=== PATIENT | male | born 1935 | race Caucasian/White ===

== ENCOUNTER → 2019-08-08 | Outpatient (CLI) | payer MEDICARE, OTHER | END | disposition home or self-care (01) | LOC: M.RAD 09:54 | DX: M25.551 Pain in right hip (principal); I10 Essential (primary) hypertension; K21.9 Gastro-esophageal reflux disease without esophagitis; M19.90 Unspecified osteoarthritis, unspecified site ==

== ENCOUNTER → 2020-11-10 | Outpatient (CLI) | payer MEDICARE, OTHER ==
[~2020-11-10] MED LIST: ALLERGY RELIEF4 MG PO; AUGMENTIN 875-1 EACH PO; CENTRUM SILVER1 EAC7 PO; CENTRUM SILVER1 EACH PO; CRANBERRY500 M3 PO; ELIQUIS5 MG PO; FISH OIL 1,0001 EAC9 PO; FLOMAX0.4 MG PO; LISINOPRIL20 MG PO; MAGNESIUM250 M1 PO; MELOXICAM7.5 MG PO; MSM500 MG PO; NIGHT TIME COL1 EAC1 PO; OCUVITE ADULT1 EAC1 PO; OMEPRAZOLE 20 M20 M1 PO; OXYCODONE HCL 55 MG PO; SAW PALMETTO 41 EACH PO; TRAMADOL 50 MG50 MG PO; VITAMIN D312.5 MCG/5 PO
[2020-11-10 10:53] LABS: APTT 27.1 Seconds (25.0-31.3); INR 1.1; PROTIME 11.7 Seconds (9.20-11.50)
== END ==
LOC: M.LAB 10:22
PROVIDERS: ATTEND Orthopaedic Surgery
DX: Z01.812 Encounter for preprocedural laboratory examination (principal); I10 Essential (primary) hypertension; E78.00 Pure hypercholesterolemia, unspecified; Z68.30 Body mass index [BMI] 30.0-30.9, adult

== ENCOUNTER 2020-11-16 12:08 | Inpatient (IN) | payer MEDICARE, OTHER ==
[~2020-11-16] VITALS: Ht 170.2 cm; Wt 89.8 kg
[~2020-11-16 12:08] MED LIST changes: -AUGMENTIN 875-1 EACH PO; -CENTRUM SILVER1 EAC7 PO; -ELIQUIS5 MG PO; -FISH OIL 1,0001 EAC9 PO; -MELOXICAM7.5 MG PO; -OCUVITE ADULT1 EAC1 PO; -OXYCODONE HCL 55 MG PO; -TRAMADOL 50 MG50 MG PO
[2020-11-16 13:20] VITALS: BP 131/85
[2020-11-16] MEDS ORDERED: CENTRUM SILVER1 EAC7 PO (13:49)
[2020-11-16] MEDS ORDERED: OCUVITE ADULT1 EAC1 PO (13:50)
[2020-11-16] MEDS ORDERED: MELOXICAM7.5 MG PO (13:51)
[2020-11-16] MEDS ORDERED: FISH OIL 1,0001 EAC9 PO (13:52)
[2020-11-16 17:32] LABS: HEMATOCRIT 36.1 % (42.0-52.0); HEMOGLOBIN 11.9 gm/dL (14.0-18.0); MCV 93.9 fL (80.0-100.0); MPV 8.1 fl. (7.2-11.1); RBC 3.85 mil/uL (4.50-6.00); RDW-CV 14.3 % (10.5-14.5)
[2020-11-16 17:41] LABS: CALCIUM 8.1 mg/dL (8.5-10.1); CREATININE 1.4 mg/dL (0.6-1.3); POTASSIUM 3.5 mmol/L (3.5-5.1)
[2020-11-16 17:46] LABS: ALBUMIN 2.6 g/dL (3.4-5.0); TOTAL BILIRUBIN 0.3 mg/dL (<0.1-1.0); TOTAL PROTEIN 5.8 g/dL (6.4-8.2)
[2020-11-16 17:50] LABS: INR 1.1; PROTIME 12.1 Seconds (9.20-11.50)
--- NOTE | 2020-11-16 20:43 | NUR ---
PATIENT ARRIVED IN ICU BED 4 AT AP[PROX 1805 WITH OR STAFF AT BEDSIDE. PATIENT WAS IN PACU POST RIGHT TOTAL HIP SX WHEN HE WENT PEA. WHEN PATIENT ARRIVED TO THE ICU HE WAS WAKING UP AND FOLLOWING SOME COMMANDS. DR BROWN AT BEDSIDE. ORDERS RECIEVED FOR STAT CTA. PATIENT WAS TAKEN TO CAT SCAN. PATIENT TOLERATED WELL. PATIENT ALSO IN ACCELERATED JUNCTIONAL RHYTHM AND CARDIO IS AWARE.
[2020-11-16 21:03] LABS: BE -6.4 mmol/L (-2 to +3); PCO2 30.5 mmHg (35.0-45.0); pH 7.379 (7.340-7.450)
[2020-11-16 21:08] LABS: PO2 229.3 mmHg (75.0-100.0)
[2020-11-16 23:00] VITALS: BP 103/57
[2020-11-17] VITALS (25 sets, daily range): BP systolic 92–122; BP diastolic 52–73
[2020-11-17 04:43] LABS: HEMOGLOBIN 10.3 gm/dL (14.0-18.0); MCH 31.2 pg (26.0-34.0); MCHC 34.3 g/dL (28.0-37.0); MCV 91.1 fL (80.0-100.0); MPV 7.6 fl. (7.2-11.1); NUCLEATED RBCS 0 /100WBC; RDW-CV 14.3 % (10.5-14.5); WBC 13.3 thou/uL (4.0-11.0)
[2020-11-17 04:46] LABS: PLATELET COUNT* 166 thou/uL (150-400)
[2020-11-17 05:05] LABS: ALBUMIN 2.5 g/dL (3.4-5.0); CALCIUM 8.3 mg/dL (8.5-10.1); CREATININE 1.6 mg/dL (0.6-1.3); TOTAL BILIRUBIN 0.3 mg/dL (<0.1-1.0); TOTAL PROTEIN 5.9 g/dL (6.4-8.2)
[2020-11-17 05:06] LABS: PREALBUMIN 20.4 mg/dL (18.0-35.7)
[2020-11-17 05:35] LABS: POTASSIUM 4.5 mmol/L (3.5-5.1)
[2020-11-17 05:41] LABS: ABSOLUTE LYMPHOCYTES 1.6 thou/uL (0.8-5.3); ABSOLUTE MONOCYTES 0.3 thou/uL (0.0-1.2); ABSOLUTE NEUTROPHILS 11.4 thou/uL (1.6-8.1); ANISOCYTOSIS 1+; PLATELET ESTIMATE ADEQUATE; POIKILOCYTOSIS 1+
--- NOTE | 2020-11-17 11:04 | EKG ---
[place] [address] ELECTROCARDIOGRAM REPORT Name: ERIC CABAN JR Room: [address] ADM IN M.R.#: [id number] Admission: 11/17/20 Attend Phys: Charlie Tian Discharge: Date of : 31 Date of Service: 11/16/20 1721 Report #: [id number] THIS REPORT FOR: //name// [facility] Test Date: 2020-11-16 Test Time: 17:21:20 Pat Name: ERIC CABAN Department: Room: [facility] Gender: M Cad Draftsman: ALC : 1935 Requested By: Eric Hines Order Number: [id number] Chalino MD: Domenic Bowser Measurements Intervals [place] Rate: 80 P: OK: QRS: -4 QRSD: 113 T: 1 QT: 416 QTc: 480 Interpretive Statements Accelerated junctional rhythm Inferior infarct, 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
--- NOTE | 2020-11-17 11:13 | EKG ---
[place] [address] ELECTROCARDIOGRAM REPORT Name: ARSHERIC Guzmán JR Room: [address] IN .R.#: [id number] Admission: 11/17/20 Attend Phys: Charlie Tian Discharge: Date of : 31 Date of Service: 11/17/20 0836 Report #: [id number] THIS REPORT FOR: //name// [facility] Test Date: 2020-11-17 Test Time: 08:36:19 Pat Name: ERIC CABAN Department: Room: [facility] Gender: M Licensed Practical Nurse Clinic Nurse: : 1935 Requested By: Bhavesh Lara Order Number: [id number] Chalino MD: Domenic Bowser Measurements Intervals [place] Rate: 66 P: 241 TX: 439 QRS: 3 QRSD: 108 T: 35 QT: 412 QTc: 432 Interpretive Statements Sinus rhythm Prolonged TX interval Abnormal R-wave progression, early transition No previous ECG available for comparison Electronically Signed On 11-17-2020 11:13:35 CDT by Domenic Bowser [email or web address] <ELECTRONICALLY SIGNED> By: Domenic Bowser MD, [facility] 11/17/20 1113 0836 0836 Domenic Bowser MD, [facility] /EPI
--- NOTE | 2020-11-17 12:54 | 2DMMODE ---
[place] [address] 2 D/M-MODE ECHOCARDIOGRAM Name: ERIC CABAN JR Room: [address] IN [facility]#: [id number] Admission: 11/17/20 Attend Phys: Charlie Tian Discharge: Date of : 31 Date of Service: 11/17/20 1254 Report #: [id number] THIS REPORT FOR: cc: James Aguilar,James Kenyon,Domenic Jacobs MD [facility] ~ APPROVED REPORT Study performed: 11/17/2020 09:27:59 EXAM: Comprehensive 2D, Doppler, and color-flow Echocardiogram Patient Location: In-Patient Room #: 004 Status: routine BSA: 1.98 HR: 71 bpm BP: 120/66 mmHg Rhythm: NSR Other Information Study Quality: Good Indications Arrhythmia 2D Dimensions IVSd: 12.09 (7-11mm) LVOT Diam: 20.88 (18-24mm) LVDd: 47.85 mm PWd: 10.91 (7-11mm) Ascending Ao: 35.78 (22-36mm) LVDs: 34.79 (25-40mm) Aortic Root: 32.98 mm Volumes Left Atrial Volume (Systole) LA ESV Index: 27.50 mL/m2 Aortic Valve AoV Peak Rio.: 1.32 m/s AO Peak Gr.: 6.97 mmHg LVOT Max P.67 mmHg AO Mean Gr.: 3.70 mmHg LVOT Mean P.00 mmHg LVOT Max V: 1.08 m/s AO V2 VTI: 21.85 cm LVOT Mean V: 0.64 m/s SCOTT (VTI): 3.18 cm2 LVOT V1 VTI: 20.28 cm AI Gosper: 2.12 m/s2 [place] [address] 2 D/M-MODE ECHOCARDIOGRAM Name: ERIC CABAN JR Room: [address] IN [facility]#: [id number] Admission: 11/17/20 Attend Phys: Charlie Tian Discharge: Date of : 31 Date of Service: 11/17/20 1254 Report #: [id number] AI PHT: 599.60 ms Pulmonary Valve PV Peak Rio.: 0.94 m/s PV Peak Gr.: 3.50 mmHg Tricuspid Valve RAP Estimate: 5.00 mmHg TR Peak Gr.: 15.78 mmHg RVSP: 20.00 mmHg PA Pressure: 20.00 mmHg Left Ventricle The left ventricle is normal size. There is normal LV segmental wall motion. There is normal left ventricular wall thickness. Left ventricular systolic function is normal. The left ventricular ejection fraction is within the normal range. LVEF is 55-60%. Grade I - abnormal relaxation pattern. Right Ventricle The right ventricle is normal size. The right ventricular systolic function is normal. Atria The left atrium size is normal. The right atrium size is normal. Aortic Valve Mild aortic valve sclerosis. Mild aortic regurgitation. There is no aortic valvular stenosis. Mitral Valve The mitral valve is normal in structure. Trace mitral regurgitation. No evidence of mitral valve stenosis. Tricuspid Valve The tricuspid valve is normal in structure. Trace tricuspid regurgitation. No pulmonary hypertension. Pulmonic Valve The pulmonary valve is normal in structure. Trace pulmonic regurgitation. Great Vessels The aortic root is normal in size. IVC is not [place] [address] 2 D/M-MODE ECHOCARDIOGRAM Name: ERIC CABAN JR Room: [address] IN [facility].#: [id number] Admission: 11/17/20 Attend Phys: Charlie Tian Discharge: Date of : 31 Date of Service: 11/17/20 1254 Report #: [id number] There is no pericardial effusion. <Conclusion> The left ventricle is normal size. There is normal left ventricular wall thickness. Left ventricular systolic function is normal. The left ventricular ejection fraction is within the normal range. LVEF is 55-60%. Grade I - abnormal relaxation pattern. The right ventricle is normal size. The left atrium size is normal. Mild aortic valve sclerosis. Mild aortic regurgitation. There is no aortic valvular stenosis. The mitral valve is normal in structure. Trace mitral regurgitation. The tricuspid valve is normal in structure. There is no pericardial effusion. There is normal LV segmental wall motion. <ELECTRONICALLY SIGNED> By: Domenic Bowser MD, [facility] 11/17/20 1254 1254 1254 Domenic Bowser MD, FACC /INF
--- NOTE | 2020-11-17 13:24 | NUR ---
daniela spk with pt and his and son at bedside. pt lives home with and is usually active and independent until his hip started given him trouble. pt uses a cane more frequently. pt has no hx with hh orsnf. pt was admitted icu after he went into PEA after hip sx. pt was extubated today. pt/ot eval needs. pt's prefers hh vs snf at d/c.
--- NOTE | 2020-11-17 15:11 | NUR ---
THIS COMPLEX MANAGER REVIEWED AND AGREES WITH THE EVALUATION AND RECOMMENDATIONS BY PATRICK MOORE FOR THIS DAY. CONCHIS SEGURAT
[2020-11-18] VITALS (7 sets, daily range): BP systolic 122–149; BP diastolic 63–85
[2020-11-18 05:05] LABS: ABSOLUTE EOSINOPHILS 0.1 thou/uL (0.0-0.7); ABSOLUTE LYMPHOCYTES 1.2 thou/uL (0.8-5.3); ABSOLUTE MONOCYTES 1.2 thou/uL (0.0-1.2); ABSOLUTE NEUTROPHILS 9.3 thou/uL (1.6-8.1); BASOPHILS 0.4 %; EOSINOPHILS 0.7 %; HEMATOCRIT 27.2 % (42.0-52.0); HEMOGLOBIN 9.5 gm/dL (14.0-18.0); LYMPHOCYTES 10.3 %; MCH 31.7 pg (26.0-34.0); MCHC 34.8 g/dL (28.0-37.0); MCV 91.3 fL (80.0-100.0); MONOCYTES 9.9 %; MPV 7.4 fl. (7.2-11.1); NUCLEATED RBCS 0 /100WBC; PLATELET COUNT* 156 thou/uL (150-400); POLYS 78.7 %; RBC 2.98 mil/uL (4.50-6.00); RDW-CV 14.3 % (10.5-14.5); WBC 11.8 thou/uL (4.0-11.0)
[2020-11-18 05:18] LABS: ALBUMIN 2.4 g/dL (3.4-5.0); CALCIUM 7.9 mg/dL (8.5-10.1); CREATININE 1.6 mg/dL (0.6-1.3); POTASSIUM 4.2 mmol/L (3.5-5.1); TOTAL BILIRUBIN 0.5 mg/dL (<0.1-1.0); TOTAL PROTEIN 5.8 g/dL (6.4-8.2)
--- NOTE | 2020-11-18 06:38 | NUR ---
RECEIVED REPORT AND ASSUMED CARE AT 1900. VSS. CARDIAC MONITORING IN PLACE. PT REPORTED PAIN TO R HIP. PRN MEDICATION PER ORDERS. PT ALSO REPORTED A "BURNING" FEELING IN LEGS BELOW HIS KNEES. THIS WAS PRESENT BEFORE ADMISSION. COMPRESSION STOCKINGS REMOVED AND SKIN ASSESSED. SKIN WDL. COMPRESSION STOCKINGS REAPPLIED. ICE APPLIED TO LOWER EXTREMITIES BILATERALLY PROVIDING RELIEF. NO ACUTE CHANGES ON THIS SHIFT, POSITION CHANGED Q2H, ROUNDING COMPLETED AND ALL NEEDS MET.
--- NOTE | 2020-11-18 15:34 | NUR ---
PT AGREEABLE TO HOME HEALTH. PT LIVES NEAR [place]. [facility] [place] SO SENT A REFERRAL TO [facility]. [phone].
--- NOTE | 2020-11-18 16:55 | NUR ---
Pt transferring to [facility]. Report called to LOLY Pfeiffer. VSS. monitor tech loretta'luke.
--- NOTE | 2020-11-18 18:43 | CON ---
[address] [address] CONSULTATION Name: ARSH,ERIC Tyesha BROWN Room: [address] IN [facility]#: [id number] Admission: 11/17/20 Attend Phys: Manolo Fields Discharge: Date of : 31 Report #: [id number] THIS REPORT FOR: cc: James Aguilar Christopher DO Pervez, Adeel MD ~ DOC #: [id number] Nahid Cotton MD DATE OF CONSULTATION: 11/17/2020 REQUESTING PHYSICIAN: Dr. Ventura De La Fuente. INDICATION FOR CONSULTATION: Acute respiratory failure following a cardiac arrest. HISTORY OF PRESENT ILLNESS: An 85-year-old gentleman, past medical history includes a remote history of smoking, he discontinued more than 22 years ago; however, he does not have a previous history of cardiac or respiratory disease. The patient now was admitted for an elective right hip arthroplasty, which he underwent yesterday. Subsequent to this procedure, he went into a PEA arrest. He had an accelerated junctional rhythm subsequently on his EKG. He therefore was endotracheally intubated. There are findings on the CT chest, which are suspicious of aspiration; however, I do not have any history of aspiration available. The patient was on the ventilator overnight, this morning was extubated and in fact is doing well off the ventilator now. He in fact is even off oxygen. He does not have any respiratory complaints. He is alert, awake and oriented. When I saw him earlier today, he was sitting comfortably in a chair. The patient has had some pain at the surgical site, otherwise has no complaints. He answers negative for 12 questions for review of systems. PAST MEDICAL HISTORY: Gastroesophageal reflux disease, hypertension and benign prostatic hypertrophy. He underwent circumcision in 08/2020, which is 2 months ago. SOCIAL HISTORY: He used to smoke when he was younger and has smoked for several decades. He also discontinued more than 20 years ago. No known history of heavy alcohol use or illegal drug use. CURRENT MEDICATIONS: List in [facility], reviewed. HOME MEDICATIONS: List also in [place], reviewed. ALLERGIES: No known drug allergies. FAMILY HISTORY: [place] [address] CONSULTATION Name: ERIC CABAN JR Room: [address]#: [id number] Admission: 11/17/20 Attend Phys: Manolo Fields Discharge: Date of : 31 Report #: [id number] PHYSICAL EXAMINATION: GENERAL: He is alert, awake and oriented, does not appear to be in any distress at this time. VITAL SIGNS: The pulse of 88 and a blood pressure of 109/60. He was saturating 96%. He was not on supplemental oxygen. He has a respiratory rate of 16. He is afebrile with a temperature of 36.7. HEENT: Head is normocephalic and atraumatic. Pupils are equal and reactive. There is no throat erythema. Mucous membranes are moist. NECK: Does not show raised JVP, asymmetry, mass or lymph nodes. CHEST: Symmetrical expansion on inspection and palpation. On auscultation, there are occasional rales at bilateral lung bases. HEART: Regular. There is no murmur. ABDOMEN: Soft and nontender. EXTREMITIES: lower extremities show no edema, no calf tenderness. SKIN: Dry and intact. NEUROLOGIC: Moves all extremities bilaterally equally and spontaneously with no focal deficit identified. LABORATORY DATA: The patient's CTA chest is reviewed. There are no pulmonary emboli. The patient, however, does have significant atelectasis at bilateral lung bases. In addition, there are air bronchograms consistent with infiltrates. Findings are suggestive of aspiration. The patient's lab work is in [place] and this is reviewed. There is leukocytosis, which has improved since yesterday. Creatinine did increase since yesterday. ASSESSMENT AND PLAN: 1. Acute respiratory failure following cardiac arrest. The patient already is extubated and is doing well off oxygen as well as off the ventilator. 2. Pulmonary infiltrates/suspicion of aspiration. There is atelectasis on the patient's CT chest, but in addition to this I do see significant air bronchograms, which are more consistent with pneumonia. It will be possible that the patient aspirated during the events yesterday; however, there is no such history available. The patient currently is on Zosyn. I agree with Zosyn. If possible, then recommend obtaining a sputum culture. If the patient continues to do well, then Zosyn could be switched over to oral Augmentin soon. 3. Atelectasis. There is significant atelectasis on the patient's CT chest as well. I recommend incentive spirometry. I also recommend encouraging ambulation if feasible. 4. Etiology of PEA arrest, not fully defined at this time. Echocardiogram is reviewed, shows normal left ventricular ejection fraction, pulmonary artery systolic pressure 20 and noted that he initially did have an accelerated junctional rhythm as well. Troponin I elevation is mild at 0.41. 5. Anticoagulation/deep vein thrombosis prophylaxis. Note that the patient is [facility] [address] [place] [place] [address] CONSULTATION Name: ERIC CABAN JR Room: [facility] IN [facility]#: [id number] Admission: 11/17/20 Attend Phys: Manolo Fields Discharge: Date of : 31 Report #: [id number] on Eliquis, this is likely for DVT prophylaxis. I am not aware of him being on anticoagulation before. 6. Status post hip arthroplasty. 7. Mild renal insufficiency. His creatinine was 1.4 yesterday and 1.6 today. I agree with IV fluids as he did receive IV dye. His baseline creatinine is not known to me. 8. C. difficile prophylaxis. We will give him Lactinex. Thanks for this consultation. MD PAUL Patel/ЮЛИЯ <ELECTRONICALLY SIGNED> By: Nahid Cotton MD 11/18/20 1843 1745 2212Aalesha Cotton MD /nt
--- NOTE | 2020-11-18 19:42 | NUR ---
PATIENT ARRIVED FROM TELEMETRY UNIT AT 1705. PATIENT SETTLED TO ROOM. PATIENT IS UP WITH ASSIST OF 1 WITH GAIT BELT AND WALKER. PATIENT UP TO COMMODE, PASSED GAS AND WAS ABLE TO VOID. PATIENT HAS ICE PACK TO RIGHT HIP. PATIENT DENIES ANY NEEDS AT THIS TIME. CALL LIGHT WITHIN REACH.
[2020-11-19 08:00] VITALS: BP 151/70
[2020-11-19 10:27] VITALS: BP 145/68
--- NOTE | 2020-11-19 10:30 | NUR ---
[facility] unable to accept Pt, they do not having nurse staff until 11/30, CM updated [facility].
[2020-11-19] MEDS ORDERED: AUGMENTIN 875-1 EACH PO (10:50)
[2020-11-19] MEDS ORDERED: OXYCODONE HCL 55 MG PO (10:52)
[2020-11-19] MEDS ORDERED: ELIQUIS5 MG PO (10:52)
[2020-11-19] MEDS ORDERED: TRAMADOL 50 MG50 MG PO (10:52)
[2020-11-19 13:43] VITALS: BP 145/68
[2020-11-19 13:53] VITALS: BP 145/68
--- NOTE | 2020-11-19 14:40 | NUR ---
PATIENT DISCHARGED TO HOME WITH HOME HEALTH. DISCHARGE PAPERS REVIEWED AND SIGNED. PRESCRIPTIONS TRANSMITTED TO PHARMACY AND INFORMATION SHEETS GIVEN. IV REMOVED. PATIENT ASSISTED WITH GETTING DRESSED. PATIENT AND FAMILY DENY ANY FURTHER NEEDS. PATIENT TAKEN BY WHEELCHAIR TO EXIT. LEFT WITH FAMILY.
[2020-11-19 14:46] VITALS: BP 145/68
--- NOTE | 2020-11-20 09:16 | CON ---
[address] [address] CONSULTATION Name: ERIC CABAN JR Room: [address]#: [id number] Admission: 11/17/20 Attend Phys: Manolo Fields Discharge: 11/19/20 Date of : 31 Report #: [id number] THIS REPORT FOR: cc: James Aguilar Christopher DO Liston, Michael J. MD [facility] ~ DOC #: [id number] cc: Eric Ng DO Michael J. Liston, MD CARDIOLOGY CONSULTATION INDICATION: Respiratory arrest. HISTORY OF PRESENT ILLNESS: The patient is an 85-year-old gentleman who was brought to the hospital for right total hip arthroplasty for progressive severe right hip degenerative joint disease. The patient had a surgery without any obvious complication during surgery. He was recovering in the usual fashion in the postanesthesia recovery unit when he was noted to become apneic. At that point in time, telemetry monitoring revealed a rhythm without a pulse consistent with pulseless electrical activity. The patient was immediately resuscitated with chest compressions and a single dose of epinephrine. Post-resuscitation, the patient is stable after being intubated with adequate oxygen saturations and a stable blood pressure. A 12-lead EKG preoperatively showed sinus rhythm without acute ST abnormality and first-degree AV block. Post-arrest, EKG shows an accelerated junctional rhythm without any acute ST ST-segment abnormalities. The patient is currently intubated and mildly sedated, but arousable. PAST MEDICAL HISTORY: 1. GERD. 2. Hypertension. 3. Benign prostatic hypertrophy. 4. Circumcision 09/25/2020. ALLERGIES: None documented. HOME MEDICATIONS: Lisinopril 20 mg daily, omeprazole 20 mg daily, Flomax 0.4 mg daily, Centrum Silver, multivitamin one tablet daily, methylsulfonylmethane 500 mg p.o. daily, magnesium 1 tablet daily, saw palmetto tablets 3-4 times daily, vitamin D3 at 12.5 mcg daily, cranberry extract 3 tablets daily, nighttime cold and flu softgel 1 capsule daily, chlorpheniramine Allergy Relief 4 mg daily, Centrum Men's Silver tablet one tablet daily, Ocuvite Adult 50+ Softgels 1 daily, meloxicam 7.5 mg daily, fish oil 1000 [place] [address] CONSULTATION Name: ERIC CABAN JR Room: [address]#: [id number] Admission: 11/17/20 Attend Phys: Manolo Fields Discharge: 11/19/20 Date of : 31 Report #: [id number] FAMILY HISTORY: Noncontributory per the records. SOCIAL HISTORY: Per the records, the patient was a former smoker, but quit 22 years ago. The patient does not drink alcohol. REVIEW OF SYSTEMS: Not obtainable at this time. PHYSICAL EXAMINATION: VITAL SIGNS: Currently, pulse is 87 and regular and blood pressure 111/80. GENERAL: This is an elderly gentleman who is intubated, but somewhat arousable. His color appears stable. HEENT: Head is normocephalic, atraumatic. NECK: Without jugular venous distention. CHEST: Clear anteriorly. CARDIAC: Exam reveals a regular rhythm. I do not appreciate gallop, murmur or rub. ABDOMEN: Soft and nontender. EXTREMITIES: Lower extremities appear warm and dry. SCDs in place. There does not appear to be appreciable edema. LABORATORY DATA: Reviewed. Sodium 136, potassium 3.5, chloride 103, bicarbonate 19, BUN 26, creatinine 1.4 and serum glucose 210. LFTs appear to be within normal limits. Initial troponin is pending. White blood cell count 20,000, hemoglobin 11.9 and platelet count 244,000. Chest x-ray shows appropriate positioning of the endotracheal tube. Bilateral opacities appears most consistent with scarring, but could represent some edema. Blunting of the costophrenic angles noted. IMPRESSION AND RECOMMENDATIONS: 1. Postoperative respiratory arrest. The patient resuscitated in the PACU. The patient's respiratory status is stable on ventilator. Concern for possible pulmonary embolus. A stat CTA with PE protocol ordered and pending. Continue respiratory support per ventilator. 2. History of hypertension. The patient's blood pressure appears stable at this time. 3. History of gastroesophageal reflux disease, present previously on PPI. 4. Status post right hip replacement for degenerative joint disease per ortho. 5. The patient presently hemodynamically stable with no obvious compromise. We will trend serial troponins and follow up accordingly. 6. Accelerated junctional rhythm on EKG. Possibly due to cardiac strain. We will follow clinically at this time. No indication for antiarrhythmic treatment. [address] [address] CONSULTATION Name: ERIC CABAN JR [facility] [id number] Admission: 11/17/20 Attend Phys: Manolo Fields Discharge: 11/19/20 Date of : 31 Report #: [id number] MD HU Patterson/ЮЛИЯ <ELECTRONICALLY SIGNED> By: Bhavesh Lara MD, [facility] 11/20/20 0916 1701 2224[facility] Tanna Lara MD, JONNA /nt
--- NOTE | 2020-11-22 09:52 | OP ---
[address] [address] OPERATIVE REPORT Name: ERIC CABAN JR Room: [address]#: [id number] Admission: 11/17/20 Attend Phys: Manolo Fields Discharge: 11/19/20 Date of : 31 Report #: [id number] THIS REPORT FOR: cc: James Aguilar Christopher DO Paul, Robert F. DO ~ DOC #: [id number] Eric Hines DO DATE OF SURGERY: 11/16/2020 PREOPERATIVE DIAGNOSIS: Right hip degenerative joint disease. POSTOPERATIVE DIAGNOSIS: Right hip degenerative joint disease. PROCEDURE PERFORMED: Right total hip arthroplasty utilizing: Biomet Taperloc system with the following components: 1. Size 58 G7 finned acetabular shell. 2. A 40 mm high wall acetabular liner. 3. A 6.5 mm bone screws lengths 25 and 30 mm. 4. Size 13 Taperloc Microplasty femoral component with high offset. 5. A 40 mm ceramic head with a -3 neck length. SURGEON: Eric Hines DO. ANESTHESIOLOGIST: Janet Zheng PA-C; Shaji Macias DO TYPE OF ANESTHESIA: General. ESTIMATED BLOOD LOSS: 275 mL SPECIMENS: None. COMPLICATIONS: None. DISPOSITION: Stable to PACU. ANTIBIOTICS: 2 grams IV Ancef PREOPERATIVE INDICATIONS: The patient is an 85-year-old male with fall in clinic for quite some time regarding right hip pain. On imaging, he has advanced DJD. He tried and failed conservative efforts. He continues to have pain on a daily basis, it is interfering with his ADLs and ambulation. Therefore, recommend he undergo total hip arthroplasty. DESCRIPTION OF PROCEDURE: The patient was seen in the preoperative area. Written consent was obtained. The operative site [place] [address] OPERATIVE REPORT Name: ERIC CABAN JR Room: [address]#: [id number] Admission: 11/17/20 Attend Phys: Manolo Fields Discharge: 11/19/20 Date of : 31 Report #: [id number] back to the operative suite and given benefit of general anesthetic. He was placed on a well-padded Merigold table with a well-padded perineal post. Bilateral lower extremities were padded and placed in the boots and subsequently into spars. The right lower extremity was then prepped and draped in normal sterile fashion. A surgical timeout was performed. The correct side, site and procedure were verified. All present were in agreement. The procedure began with the typical standard anterior incision. Sharp dissection through skin. We bovied through the subcutaneous fat and identified the fascial layer. We used a new knife to make an incision through the fascia in line with our skin incision. We identified the interval and placed our retractors appropriately around the proximal femur. We pretreated the capsule with Aquamantys and this was followed by a standard anterior capsulectomy. We made our femoral neck cut approximately 1 cm proximal to the lesser trochanter. A napkin ring cut was created. Bone was removed. We then placed retractors appropriately around the acetabulum. We removed any remaining anterior capsular tissue as well as the labrum. We then sequentially reamed up to a size 57. At this point, we had good bleeding bone. We placed our acetabular shell utilizing the alignment guide as well as fluoroscopy. We then placed two screws into the posterior superior position, which were drilled, measured, and appropriate length screws were placed. We confirmed appropriate position of the cup and screws. We then placed our high wall liner in the anterior superior position. At this point, we turned our attention to the femur which was maximally externally rotated. We released the inferior capsule down to the lesser trochanter, maximally externally rotated, placed our retractors appropriately and then completely extended and adducted the leg. At this point, we performed a posterior capsular release in order to gain better visualization. We then prepped the femur with the box osteotome followed by the rat tail rasp and sequentially broached up to a size 13. We trialed a high offset -3. Hip was reduced. Imaging confirmed the appropriate size, length and offset. We tested stability, which was stable in all directions. We then dislocated the hip, removed all trial components. Wound was thoroughly irrigated. Vancomycin powder was applied to the surgical site. We then placed the final size 13 stem, which sat in a similar position of the trial. We therefore opened and impacted the -3 neck with 40 mm head. Final reduction was performed. Final images were obtained and saved to the PACS system. Wound was thoroughly irrigated. The fascial layer was closed with a running #1 Stratafix. Subcutaneous tissue was closed with 2-0 Monocryl in simple inverted interrupted fashion. Skin was reapproximated with a running 3-0 Stratafix. Excellent skin glue as well as Mepilex were placed. The patient was awoken from anesthesia and transferred to PACU in stable condition. There were no obvious complications. Needle, sponge counts correct x2. Dr. Hines was present for all critical aspects of the case. Eric Hines, [place] RFP/[place] [address] OPERATIVE REPORT Name: ERIC CABAN JR Room: [address] [place] .R.#: [id number] Admission: 11/17/20 Attend Phys: Manolo Fields Discharge: 11/19/20 Date of : 31 Report #: [id number] <ELECTRONICALLY SIGNED> By: Eric Hines DO 11/22/20 [id number] Hines DO /yadira
== END 2020-11-19 14:40 | disposition home health service (06) | DRG 469 ==
LOC: M.TBA 12:08 → M.ORTHSURG 13:59 → M.ICU 18:37 → M.2W 11-17 09:46 → M.ICU 11-17 10:02 → M.2W 11-17 14:31 → M.ORTHSURG 11-18 17:01
PROVIDERS: Internal Medicine; Internal Medicine Cardiovascular Disease; Orthopaedic Surgery; Physician Assistant; ADMIT Internal Medicine; ATTEND Internal Medicine
PROC: 0BH17EZ Insertion of Endotracheal Airway into Trachea, Via Natural or Artificial Opening (ICD-10-PCS; principal; 2020-11-16)
PROC: 5A1935Z Respiratory Ventilation, Less than 24 Consecutive Hours (ICD-10-PCS; principal; 2020-11-16)
PROC: 0SR903Z Replacement of Right Hip Joint with Ceramic Synthetic Substitute, Open Approach (ICD-10-PCS; principal; 2020-11-16)
PROC: 5A12012 Performance of Cardiac Output, Single, Manual (ICD-10-PCS; principal; 2020-11-16)
DX: M16.11 Unilateral primary osteoarthritis, right hip (principal); R09.2 Respiratory arrest; J69.0 Pneumonitis due to inhalation of food and vomit; J95.821 Acute postprocedural respiratory failure; I97.121 Postprocedural cardiac arrest following other surgery; J98.11 Atelectasis; I10 Essential (primary) hypertension; K21.9 Gastro-esophageal reflux disease without esophagitis; G62.9 Polyneuropathy, unspecified; N40.0 Benign prostatic hyperplasia without lower urinary tract symptoms; Z96.641 Presence of right artificial hip joint; Z87.891 Personal history of nicotine dependence; Z79.899 Other long term (current) drug therapy